=== PATIENT | female | born 1955 | race Caucasian/White ===

== ENCOUNTER → 2017-11-21 | Outpatient (CLI) | payer BC ==
[~2017-11-21] MED LIST: SYNTHROID75 MCG
== END | disposition home or self-care (01) ==
LOC: PPHC 10:02
DX: H92.02 Otalgia, left ear (principal)

== ENCOUNTER 2024-06-28 12:03 | Emergency (ER) | payer OTHER ==
[~2024-06-28] VITALS: Ht 167.6 cm; Wt 68.0 kg
[2024-06-28] MEDS ORDERED: SIMVASTATIN10 MG PO (12:12)
[2024-06-28 15:17] LABS: PH,URINE 5.5 (5.0-8.0); URINE APPEARANCE Clear; URINE BILIRRUBIN Negative (NEGATIVE); URINE BLOOD Negative; URINE COLOR Yellow; URINE GLUCOSE Negative (NEGATIVE); URINE KETONE Trace (NEGATIVE); URINE LEUKOCYTE Moderate; URINE NITRATE Positive; URINE PROTEIN Negative (NEGATIVE); URINE UROBILINOGEN 0.2 E.U./dl
[2024-06-28 15:19] LABS: HEMATOCRIT 38.1 % (36.0-45.00); HEMOGLOBIN 12.1 g/dL (12.0-15.00); MEAN CELL VOLUME 72.2 fL (80.00-100.00); MEAN CORPUSCULAR HEMOGLOBIN 22.9 pg (27.00-32.0); MEAN CORPUSCULAR HGB CONC 31.7 g/dl (32.0-36.0); PLATELET COUNT 259 K/uL (150-450); RED BLOOD COUNT 5.27 M/uL (4.00-6.00); RED CELL DISTRIBUTION WIDTH 15.3 % (11.5-14.5)
[2024-06-28 15:21] LABS: URINE EPITHELIAL CELLS 8.6 uL (0.0-38.8); URINE WBC 94.5 uL (0.0-23.2)
[2024-06-28 15:31] LABS: URINE BACTERIA > 9821.5 uL (0.0-1933); URINE CAST 0.15 uL (0.0-1.40)
[2024-06-28 15:41] LABS: CALCIUM 9.3 mg/dL (8.5-10.1); CREATININE SERUM 0.77 mg/dL (0.55-1.02); GFR 73.9; POTASSIUM 5.18 mEq/L (3.5-5.1)
== END 2024-06-28 16:42 | disposition home or self-care (01) ==
LOC: ER 12:04
PROVIDERS: General Practice
DX: K57.32 Diverticulitis of large intestine without perforation or abscess without bleeding (principal)

== ENCOUNTER 2024-07-23 14:10 | Outpatient (CLI) | payer OTHER ==
[~2024-07-23 14:10] MED LIST changes: +SIMVASTATIN10 MG PO
== END 2024-07-23 14:18 | disposition home or self-care (01) ==
LOC: MAMO-SONO 14:10
PROVIDERS: ATTEND Internal Medicine
DX: Z12.31 Encounter for screening mammogram for malignant neoplasm of breast (principal)